=== PATIENT | male | born 1995 | race Two or more races ===

== ENCOUNTER 2018-02-23 09:50 | Emergency (ER) | payer MEDICAID, OTHER ==
[~2018-02-23] VITALS: Ht 167.6 cm; Wt 71.7 kg
[2018-02-23 10:31] LABS: Basophils # (auto) 0 uL; Basophils % (auto) 0.8 % (0.0-2.0); Eosinophils # (auto) 0.1 uL; Eosinophils % (auto) 2.5 % (0.0-7.0); Hematocrit 51.3 % (41.0-53.0); Hemoglobin 17.6 g/dL (13.5-17.5); Lymphocytes # (auto) 2.4 uL; Lymphocytes % (auto) 39.8 % (10.0-50.0); Mean Corpuscular Hemoglobin 32.6 pg (28.0-32.0); Mean Corpuscular Hgb Conc. 34.3 g/dL (32.0-36.0); Mean Corpuscular Volume 95.1 fL (80.0-100.0); Monocytes # (auto) 0.5 uL; Monocytes % (auto) 8.1 % (0.0-12.0); Neutrophils # (auto) 2.9 uL; Neutrophils % (auto) 48.8 % (37.0-80.0); Nucleated Red Blood Cells % 0.1 %; Platelet Count (auto) 178 10^3/uL (140-450); Red Cell Distribution Width 12.5 % (11.8-14.3); White Blood Cell 5.9 10^3/uL (4.4-10.8)
[2018-02-23] MEDS ORDERED: ASPirin 81 mg TAB PO ONE (10:45)
[2018-02-23 10:52] LABS: Alanine Aminotransferase 28 U/L (16-61); Albumin 4.2 g/dL (3.4-5.0); Alkaline Phosphatase 122 U/L (45-117); Anion Gap 4 (5-15); Aspartate Aminotransferase 17 U/L (15-37); BUN/Creatinine Ratio 13.6; Bilirubin, Total 0.3 mg/dL (0.2-1.0); Blood Urea Nitrogen 16 mg/dL (7-18); Calcium 8.5 mg/dL (8.5-10.1); Carbon Dioxide 30 mmol/L (21-32); Chloride 105 mmol/L (98-107); GFR African American 99 mL/min; GFR Non-African American 82 mL/min; Glucose 83 mg/dL (74-106); Magnesium 2.4 mg/dL (1.6-2.6); Sodium 139 mmol/L (136-145); Total Protein 8.2 g/dL (6.4-8.2)
[2018-02-23 12:26] VITALS: BP 121/78
== END 2018-02-23 12:28 | disposition home or self-care (01) ==
LOC: ER 09:54
DX: R07.89 Other chest pain (principal)
CPT/HCPCS: 36415; 80053; 83735; 84484; 85025; 93005; 94761

== ENCOUNTER 2018-06-06 02:26 | Emergency (ER) | payer MEDICAID ==
[~2018-06-06] VITALS: Ht 177.8 cm; Wt 72.6 kg
[2018-06-06 02:51] VITALS: BP 122/88
[2018-06-06] MEDS ORDERED: LORazepam 2MG/ML-1ML VIAL IV ONE (03:00)
[2018-06-06] MEDS ORDERED: THIAMINE INJ 100 MG, MULTIPLE VITAMIN 10 ML, FOLIC ACID 1 MG, MAGNESIUM SULF SDV 50% 8 ... IV SCH ×5 (12:00)
== END 2018-06-06 06:51 | disposition left against medical advice (07) ==
LOC: EDBD 02:26 → ER 02:30
DX: F10.920 Alcohol use, unspecified with intoxication, uncomplicated (principal); Y90.0 Blood alcohol level of less than 20 mg/100 ml; Z53.21 Procedure and treatment not carried out due to patient leaving prior to being seen by health care provider
CPT/HCPCS: 82962

== ENCOUNTER 2018-06-07 18:33 | Emergency (ER) | payer MEDICAID ==
[~2018-06-07] VITALS: Ht 167.6 cm; Wt 72.6 kg
[2018-06-07 18:38] VITALS: BP 161/87
== END 2018-06-07 20:47 | disposition home or self-care (01) ==
LOC: ER 18:33
DX: S00.12XA Contusion of left eyelid and periocular area, initial encounter (principal); M54.2 Cervicalgia; Y04.2XXA Assault by strike against or bumped into by another person, initial encounter; Y93.89 Activity, other specified; Y92.89 Other specified places as the place of occurrence of the external cause; Y99.8 Other external cause status
CPT/HCPCS: 70450

== ENCOUNTER 2018-12-09 21:52 | Emergency (ER) | payer MEDICAID ==
[~2018-12-09] VITALS: Ht 167.6 cm; Wt 66.7 kg
[2018-12-10 01:12] VITALS: BP 110/71
[2018-12-10] MEDS ORDERED: ACETAMINOPHEN/CODEINE#3 (300/30mg) TAB PO ONE (01:30)
== END 2018-12-10 02:25 | disposition home or self-care (01) ==
LOC: ER 21:53
DX: S82.141A Displaced bicondylar fracture of right tibia, initial encounter for closed fracture (principal); M23.91 Unspecified internal derangement of right knee; M25.461 Effusion, right knee; F12.90 Cannabis use, unspecified, uncomplicated; W18.39XA Other fall on same level, initial encounter; Y93.66 Activity, soccer; Y99.8 Other external cause status; Y92.89 Other specified places as the place of occurrence of the external cause
CPT/HCPCS: 29505; 73562

== ENCOUNTER 2025-04-02 17:16 | Emergency (ER) | payer MEDICAID ==
[~2025-04-02] VITALS: Ht 165.1 cm; Wt 72.8 kg
[~2025-04-02 17:16] MED LIST: NAPR-746 PO
--- NOTE | 2025-04-02 18:52 | DVH ---
CLINICAL HISTORY: right hip pain TECHNIQUE: 2 views of the pelvis were obtained. COMPARISON: None FINDINGS: No acute fracture or dislocation is seen. No soft tissue abnormality is evident. There are no signifi cant degenerative changes. IMPRESSION: No acute osseous abnormality of the pelvis.
[2025-04-02] MEDS ORDERED: CEPH500C PO (20:34)
[2025-04-02] MEDS ORDERED: ACET500T58 PO (20:34)
[2025-04-02] MEDS ORDERED: CLIN1CAP70 PO (20:35)
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
[2025-04-02] MEDS: TETANUS-DIPTH-ACEL PERTUSSIS 0.5ML SYR Tdap IM ONE (20:38)
[2025-04-02 20:52] VITALS: BP 116/76; PULSE 82; RESP 16; TEMP 97.9; O2SAT 97
== END 2025-04-02 20:56 | disposition home or self-care (01) ==
LOC: ER 17:16
DX: S71.011A Laceration without foreign body, right hip, initial encounter (principal); V89.2XXA Person injured in unspecified motor-vehicle accident, traffic, initial encounter; X58.XXXA Exposure to other specified factors, initial encounter; Y93.I9 Activity, other involving external motion; Y92.488 Other paved roadways as the place of occurrence of the external cause; Y99.8 Other external cause status
CPT/HCPCS: 12002; 72170; 90471; 90715